=== PATIENT | male | born 1970 | race Caucasian/White ===

== ENCOUNTER 2020-07-09 13:47 | Emergency (ER) | payer BC ==
[~2020-07-09] VITALS: Ht 182.9 cm; Wt 104.5 kg
[2020-07-09 14:32] VITALS: BP 165/116
[2020-07-09] MEDS ORDERED: amox tr/potassium clavulanate 875/125mg TAB PO ONE (15:00)
[2020-07-09] MEDS ORDERED: AMOX-422 PO (15:02)
[2020-07-09] MEDS ORDERED: HYDR-3972 PO (15:02)
== END 2020-07-09 15:12 | disposition home or self-care (01) ==
LOC: ER 13:49
DX: L03.114 Cellulitis of left upper limb (principal); M79.632 Pain in left forearm; M25.522 Pain in left elbow; K21.9 Gastro-esophageal reflux disease without esophagitis; Z72.89 Other problems related to lifestyle; Z79.2 Long term (current) use of antibiotics; Z79.899 Other long term (current) drug therapy
CPT/HCPCS: 99283